=== PATIENT | male | born 1950 | race Caucasian/White ===

== ENCOUNTER 2017-06-10 10:57 | Observation (INO) | payer MEDICARE ==
[~2017-06-10] VITALS: Ht 185.4 cm; Wt 97.3 kg
[2017-06-10] MEDS ORDERED: NITROGLYCERIN 0.4 MG SL TAB SL ONE (11:20)
[2017-06-10 11:27] LABS: BASOPHILS % (AUTO) 0.4 % (0.0-5.0); EOSINOPHILS % (AUTO) 1.9 % (0.0-8.0); HEMATOCRIT 46.8 % (42-54); LYMPHOCYTES % (AUTO) 33.4 % (21.0-51.0); MEAN CORPUSCULAR HEMOGLOBIN 30.7 pg (27.0-33.0); MEAN CORPUSCULAR HGB CONC 35.5 g/dL (32.0-36.0); MEAN CORPUSCULAR VOLUME 86.5 fL (79-99); MONOCYTES % (AUTO) 6.5 % (3.0-13.0); NEUTROPHILS % (AUTO) 57.8 % (40.0-77.0); PLATELET COUNT (AUTO) 231 K/uL (130-400); RED BLOOD CELL COUNT(AUTO) 5.41 MIL/uL (4.50-6.20); WHITE BLOOD COUNT (AUTO) 8.7 K/uL (4.8-10.8)
[2017-06-10] MEDS ORDERED: ONDANSETRON HCL MDV 20ML 2 MG/ML VIAL ONE (11:27)
[2017-06-10 11:32] LABS: CREATININE 1.2 mg/dL (0.5-1.5); POTASSIUM 4.1 mmol/L (3.5-5.1)
[2017-06-10 11:44] LABS: INR 0.96 (0.85-1.15); PARTIAL THROMBOPLASTIN TIME 23.9 SEC (26.3-35.5); PROTHROMBIN TIME 10.1 SEC (9.6-11.6)
[2017-06-10 11:46] LABS: BILIRUBIN,TOTAL 0.4 mg/dL (0.2-1.0); CREATINE KINASE MB 0.9 ng/mL (0.5-3.6); TOTAL PROTEIN, SERUM 7.9 g/dL (6.0-8.3)
[2017-06-10] MEDS ORDERED: NITROGLYCERIN 50 MG/D5% WATER 1 BOT ONE (11:46)
[2017-06-10] MEDS ORDERED: MORPHINE SULFATE 4 MG/1ML SYG ONE (11:46)
[2017-06-10] MEDS ORDERED: IOPAMIDOL-370 100 ML VIAL IV ONE ×3 (12:11→17:03)
[2017-06-10] MEDS ORDERED: SODIUM CHLORIDE 0.9% 1000ML 1,000 ML IV ONE (15:35)
[2017-06-10] MEDS ORDERED: BIVALIRUDIN 250 MG/VIAL IV ONE (15:45)
[2017-06-10] MEDS ORDERED: NITROGLYCERIN 5 MG/ML 10 ML VIAL IV ONE (15:46)
[2017-06-10] MEDS ORDERED: ISOVUE-370 50ML VIAL IV ONE (15:46)
[2017-06-10] MEDS ORDERED: LIDOCAINE HCL 2% 20ML ONE (16:24)
[2017-06-10 17:28] VITALS: BP 131/68
[2017-06-10] MEDS ORDERED: PRASUGREL HCL 10 MG TABLET ONE (17:38)
[2017-06-10] MEDS ORDERED: LABETALOL HCL 5 MG/ML 20ML VIAL IV ONE (17:45)
[2017-06-10] MEDS ORDERED: SODIUM CHLORIDE 0.9% 1000ML 1,000 ML IV SCH (17:49)
[2017-06-10 19:15] VITALS: BP 114/76
[2017-06-10] MEDS: CARVEDILOL 6.25 MG TABLET PO SCH ×2 (19:17→21:55)
[2017-06-10] MEDS: LOSARTAN 50 MG TABLET PO SCH (19:17)
[2017-06-10 19:30] VITALS: BP 130/64
[2017-06-10 19:38] LABS: HEMATOCRIT 43.3 % (42-54); MEAN CORPUSCULAR HEMOGLOBIN 30.2 pg (27.0-33.0); MEAN CORPUSCULAR HGB CONC 34.9 g/dL (32.0-36.0); MEAN CORPUSCULAR VOLUME 86.6 fL (79-99); PLATELET COUNT (AUTO) 212 K/uL (130-400); RED CELL DISTRIBUTION WIDTH 12.9 % (11.0-15.5); WHITE BLOOD COUNT (AUTO) 11.4 K/uL (4.8-10.8)
[2017-06-10 19:45] VITALS: BP 137/79
[2017-06-10 19:58] LABS: CREATININE 1.2 mg/dL (0.5-1.5); POTASSIUM 4.1 mmol/L (3.5-5.1)
[2017-06-10 19:59] LABS: LYMPHOCYTES % (MANUAL) 14 % (22-44); MONOCYTES % (MANUAL) 2 % (2-9); PLATELET MORPHOLOGY COMMENT ADEQUATE; REACTIVE LYMPHOCYTES 1 % (0-0); SEGMENTED NEUTROPHILS % 83 % (40-70)
[2017-06-10 20:00] VITALS: BP 126/56
[2017-06-10] MEDS: ATORVASTATIN CALCIUM 20 MG TABLET PO SCH (21:55)
[2017-06-10 23:42] VITALS: BP 120/65
[2017-06-11] MEDS ORDERED: NITROGLYCERIN 1GM/1 INCH PACKET TD ONE (02:08)
[2017-06-11] MEDS ORDERED: ONDANSETRON HCL MDV 20ML 2 MG/ML VIAL IVP PRN (02:15)
[2017-06-11] MEDS: NITROGLYCERIN 1GM/1 INCH PACKET TD SCH ×3 (02:26→19:00)
[2017-06-11] MEDS ORDERED: ASPIRIN 81MG TAB.CHEW PO ONE (02:28)
[2017-06-11 02:33] LABS: MEAN CORPUSCULAR HEMOGLOBIN 30.3 pg (27.0-33.0); MEAN CORPUSCULAR HGB CONC 34.8 g/dL (32.0-36.0); NUCLEATED RED BLOOD CELLS 0.1 % (0.0-0.19); PLATELET COUNT (AUTO) 213 K/uL (130-400); RED BLOOD CELL COUNT(AUTO) 5.06 MIL/uL (4.50-6.20); WHITE BLOOD COUNT (AUTO) 15.3 K/uL (4.8-10.8)
[2017-06-11 02:42] LABS: CREATININE 1.2 mg/dL (0.5-1.5); POTASSIUM 3.9 mmol/L (3.5-5.1)
[2017-06-11 03:04] LABS: CREATINE KINASE MB 14.2 ng/mL (0.5-3.6)
[2017-06-11 03:06] LABS: TROPONIN I 3.8 ng/mL (0.00-0.06)
[2017-06-11 03:45] VITALS: BP 153/87
[2017-06-11 07:00] VITALS: BP 110/66
[2017-06-11] MEDS: PRASUGREL HCL 10 MG TABLET PO SCH (08:55)
[2017-06-11] MEDS: CARVEDILOL 6.25 MG TABLET PO SCH ×2 (08:55→20:06)
[2017-06-11] MEDS: PANTOPRAZOLE SODIUM 40 MG TABLET.DR PO SCH (08:55)
[2017-06-11] MEDS: LOSARTAN 50 MG TABLET PO SCH (08:55)
[2017-06-11] MEDS ORDERED: ASPIRIN 81MG TAB.CHEW PO SCH (09:00)
[2017-06-11 11:00] VITALS: BP 103/62
[2017-06-11] MEDS: POLYETHYLENE GLYCOL 3350 17 GM POWD.PACK PO SCH (12:26)
[2017-06-11] MEDS ORDERED: ACETAMINOPHEN 325 MG TAB ONE (14:59)
[2017-06-11] MEDS ORDERED: ACETAMINOPHEN 325 MG TAB PO PRN (15:00)
[2017-06-11 16:21] VITALS: BP 116/74
[2017-06-11 19:00] VITALS: BP 117/64
[2017-06-11] MEDS: ATORVASTATIN CALCIUM 20 MG TABLET PO SCH (20:06)
[2017-06-12] VITALS: BP 96/61
[2017-06-12] MEDS: NITROGLYCERIN 1GM/1 INCH PACKET TD SCH ×2 (02:52→10:27)
[2017-06-12 04:00] VITALS: BP 98/59
[2017-06-12 07:39] VITALS: BP 102/66
[2017-06-12] MEDS ORDERED: OMEG-148 PO (08:29)
[2017-06-12] MEDS ORDERED: METF750T2 PO (08:29)
[2017-06-12] MEDS ORDERED: LISI1TAB9 PO (08:29)
[2017-06-12] MEDS ORDERED: GLUC100019 PO (08:29)
[2017-06-12] MEDS ORDERED: ASPI81TA40 PO (08:29)
[2017-06-12] MEDS ORDERED: MULT-685 PO (08:29)
[2017-06-12] MEDS ORDERED: CALC-1208 PO (08:29)
[2017-06-12] MEDS ORDERED: OMEP20CA10 PO (08:29)
[2017-06-12] MEDS ORDERED: PRAV20TA4 PO (08:29)
[2017-06-12] MEDS: LOSARTAN 50 MG TABLET PO SCH (08:48)
[2017-06-12] MEDS: POLYETHYLENE GLYCOL 3350 17 GM POWD.PACK PO SCH (08:48)
[2017-06-12] MEDS: CARVEDILOL 6.25 MG TABLET PO SCH (08:49)
[2017-06-12] MEDS: PANTOPRAZOLE SODIUM 40 MG TABLET.DR PO SCH (08:49)
[2017-06-12] MEDS: PRASUGREL HCL 10 MG TABLET PO SCH (08:49)
[2017-06-12] MEDS ORDERED: ASPIRIN 325MG EC TAB 325 MG TABLET.DR PO SCH (10:45)
[2017-06-12] MEDS ORDERED: PRAS10TA6 PO (10:56)
[2017-06-12] MEDS ORDERED: CARV6.2579 PO (10:56)
[2017-06-12] MEDS ORDERED: AEC81 PO (10:56)
[2017-06-12] MEDS ORDERED: ATOR10 PO (10:56)
[2017-06-12 11:29] VITALS: BP 99/64
[2017-06-13] MEDS ORDERED: ASPIRIN 81 MG EC TAB PO SCH (09:00)
== END 2017-06-12 13:00 | disposition home or self-care (01) ==
LOC: EDH 10:57 → EDHIP 16:02 → 2AH 18:15
PROVIDERS: ADMIT Family Medicine; ATTEND Family Medicine
DX: I21.4 Non-ST elevation (NSTEMI) myocardial infarction (principal); I25.10 Atherosclerotic heart disease of native coronary artery without angina pectoris; E11.9 Type 2 diabetes mellitus without complications; E78.5 Hyperlipidemia, unspecified; I10 Essential (primary) hypertension; Z95.5 Presence of coronary angioplasty implant and graft; Z79.899 Other long term (current) drug therapy; Z79.84 Long term (current) use of oral hypoglycemic drugs; Z79.82 Long term (current) use of aspirin; K21.9 Gastro-esophageal reflux disease without esophagitis; K22.70 Barrett's esophagus without dysplasia; I25.5 Ischemic cardiomyopathy
CPT/HCPCS: 36415 ×2; 71045; 71275; 80048; 80053; 80061 ×2; 82550 ×2; 82553 ×2; 82948 ×3; 83874; 83880; 84484 ×3; 85025 ×2; 85027; 85610; 85730; 93005 ×5; 93458; 99291; C1760; C1769 ×2; C1874 ×2; C1887; C1894 ×2; C9600; C9601; G0378 ×45; J0583; J1644; J2270; J3490 ×4; J7030; Q9967 ×4

== ENCOUNTER 2018-04-14 08:38 | Observation (INO) | payer MEDICARE ==
[2018-04-12 08:35] VITALS: BP 136/62
[2018-04-12 08:38] LABS: APPEARANCE,URINE Clear (CLEAR); BILIRUBIN,URINE Negative (NEGATIVE); COLOR,URINE Yellow (YELLOW); GLUCOSE, URINE (UA) Negative (NEGATIVE); KETONES,URINE Negative (NEGATIVE); LEUKOCYTE ESTERASE ,URINE Negative (NEGATIVE); NITRATE,URINE Negative (NEGATIVE); OCCULT BLOOD,URINE Negative (NEGATIVE); PH,URINE 5.5 (5.0-8.0); PROTEIN,URINE Negative (NEGATIVE)
[2018-04-12 08:39] LABS: BASOPHILS % (AUTO) 0.4 % (0.0-5.0); EOSINOPHILS % (AUTO) 4.1 % (0.0-8.0); LYMPHOCYTES % (AUTO) 17.5 % (21.0-51.0); MEAN CORPUSCULAR HEMOGLOBIN 30.5 pg (27.0-33.0); MEAN CORPUSCULAR HGB CONC 34.4 g/dL (32.0-36.0); MEAN CORPUSCULAR VOLUME 88.5 fL (79-99); MONOCYTES % (AUTO) 5.8 % (3.0-13.0); NEUTROPHILS % (AUTO) 72.2 % (40.0-77.0); NUCLEATED RED BLOOD CELLS 0.1 % (0.0-0.19); PLATELET COUNT (AUTO) 228 K/uL (130-400); RED BLOOD CELL COUNT(AUTO) 4.86 MIL/uL (4.50-6.20); WHITE BLOOD COUNT (AUTO) 8.9 K/uL (4.8-10.8)
[2018-04-12 08:47] LABS: CREATININE 1.2 mg/dL (0.5-1.5); POTASSIUM 4.2 mmol/L (3.5-5.1)
[2018-04-12 09:01] LABS: INR 1.05 (0.85-1.15); PARTIAL THROMBOPLASTIN TIME 26.1 SEC (26.3-35.5)
[2018-04-14] VITALS (10 sets, daily range): BP systolic 97–136; BP diastolic 57–73
[~2018-04-14] VITALS: Ht 185.4 cm; Wt 98.2 kg
[~2018-04-14 08:38] MED LIST: ASPI-555 PO; ATOR-2 PO; CARV6.2579 PO; CLOP75TA14 PO; LISI1TAB9 PO; METF750T2 PO; MULT-685 PO; OMEG-148 PO; OMEP20CA10 PO
[2018-04-14] MEDS ORDERED: SODIUM CHLORIDE 0.9% 1000ML 1,000 ML IV ONE (09:20)
[2018-04-14] MEDS ORDERED: IOHEXOL 350 MG/ML 100ML INFUS..BTL IV ONE (13:01)
[2018-04-14] MEDS ORDERED: IOHEXOL-350 50ML VIAL IV ONE (13:01)
[2018-04-14] MEDS ORDERED: LIDOCAINE HCL 2% 20ML ONE (13:01)
[2018-04-14] MEDS ORDERED: NITROGLYCERIN 5 MG/ML 10 ML VIAL IV ONE (13:01)
[2018-04-14] MEDS ORDERED: BIVALIRUDIN 250 MG/VIAL IV ONE (13:26)
[2018-04-14] MEDS ORDERED: MIDAZOLAM HCL 1 MG/ML 2ML VIAL ONE (13:38)
[2018-04-14] MEDS ORDERED: FENTANYL CITRATE PF 50 MCG/1 ML 2ML VIAL ONE (13:39)
[2018-04-14] MEDS ORDERED: LABETALOL HCL 5 MG/ML 20ML VIAL IV ONE (14:23)
[2018-04-14] MEDS ORDERED: SODIUM CHLORIDE 0.9% 1000ML 1,000 ML IV SCH (14:25)
[2018-04-14] MEDS ORDERED: CLOPIDOGREL BISULFATE 300 MG TAB ONE ×2 (14:30→14:35)
[2018-04-14] MEDS ORDERED: HYDRALAZINE HCL 20 MG/ML VIAL ONE (14:36)
[2018-04-14] MEDS: INSULIN HUMULIN R 100 UNIT/ML 3ML SQ SCH ×2 (16:30→21:00)
--- NOTE | 2018-04-14 16:30 | NUR ---
Report called to Mary Gasca RN. Mary has no further questions at this time.
--- NOTE | 2018-04-14 16:45 | NUR ---
PT to PCCU to room 217, Care rendered over to Mary Gasca RN. Further bedside report provided. Mary denies any further questions. Pt's 2 hour bedrest up at 16:43 and pt able to scoot from day pt bed to ICU bed without problems.
--- NOTE | 2018-04-14 16:50 | NUR ---
RECEIVED PT FROM DAY PT. PT AAO X4. ON RA. DENIES ANY CHEST PAIN OR DISCOMFORT. PIV X1 TO LEFT WRIST WITH NS AT 100 ML/HR. PERCLOSE DRESSING TO RIGHT GROIN INTACT. PEDAL PULSES STRONG AND PALPABLE. PT SR 76 ON BEDSIDE MONITOR. NO ECTOPY NOTED. VS NOTED ON COMPUTER. PLAN OF CARE DISCUSSED. CALL LIGHT WITHIN REACH. AT BEDSIDE. CONTINUE TO MONITOR PT.
--- NOTE | 2018-04-14 20:00 | NUR ---
pt with right groin dressing dry intact. no bleeding noted. pt denies numbness or tingling to bilateral lower ext. Lower ext warm to touch bilateral.
[2018-04-14] MEDS: FISH OIL 1000 MG/CAP PO SCH (21:00)
[2018-04-14] MEDS: CARVEDILOL 6.25 MG TABLET PO SCH (21:00)
[2018-04-14] MEDS ORDERED: ATORVASTATIN CALCIUM 40 MG TABLET PO SCH (21:00)
[2018-04-14] MEDS: LISINOPRIL HCTZ PO SCH (21:00)
[2018-04-14] MEDS ORDERED: ASPIRIN 81 MG EC TAB PO SCH (21:00)
[2018-04-15 04:00] VITALS: BP 100/66
[2018-04-15 04:02] LABS: HEMATOCRIT 41.3 % (42-54); MEAN CORPUSCULAR HEMOGLOBIN 29.8 pg (27.0-33.0); MEAN CORPUSCULAR HGB CONC 34.5 g/dL (32.0-36.0); MEAN CORPUSCULAR VOLUME 86.5 fL (79-99); PLATELET COUNT (AUTO) 217 K/uL (130-400); RED BLOOD CELL COUNT(AUTO) 4.78 MIL/uL (4.50-6.20); RED CELL DISTRIBUTION WIDTH 12.6 % (11.0-15.5); WHITE BLOOD COUNT (AUTO) 9.8 K/uL (4.8-10.8)
[2018-04-15] MEDS: INSULIN HUMULIN R 100 UNIT/ML 3ML SQ SCH (06:24)
[2018-04-15 07:00] VITALS: BP 125/79
[2018-04-15] MEDS ORDERED: PANTOPRAZOLE SODIUM 40 MG TABLET.DR PO SCH ×2 (07:30)
[2018-04-15 08:03] VITALS: BP 125/79
[2018-04-15] MEDS: CARVEDILOL 6.25 MG TABLET PO SCH (08:03)
[2018-04-15] MEDS: FISH OIL 1000 MG/CAP PO SCH (08:03)
[2018-04-15] MEDS: LISINOPRIL HCTZ PO SCH (08:08)
[2018-04-15] MEDS ORDERED: MULTIVITAMIN WITH MINERALS TABLET PO SCH (09:00)
[2018-04-15] MEDS ORDERED: ASPIRIN 81MG TAB.CHEW PO SCH (09:00)
[2018-04-15] MEDS ORDERED: CLOPIDOGREL BISULFATE 75 MG TAB PO SCH ×2 (09:00)
--- NOTE | 2018-04-15 09:20 | NUR ---
DR SANDERS AWARE OF CONSULT
== END 2018-04-15 11:15 | disposition home or self-care (01) ==
LOC: DAH 08:38 → DAHIP 08:39 → 2CH 16:50
PROVIDERS: ADMIT Internal Medicine Cardiovascular Disease; ATTEND Internal Medicine Cardiovascular Disease
DX: I25.119 Atherosclerotic heart disease of native coronary artery with unspecified angina pectoris (principal); E11.649 Type 2 diabetes mellitus with hypoglycemia without coma; E78.2 Mixed hyperlipidemia; I11.0 Hypertensive heart disease with heart failure; I50.20 Unspecified systolic (congestive) heart failure; I25.2 Old myocardial infarction; Z95.5 Presence of coronary angioplasty implant and graft
CPT/HCPCS: 36415 ×2; 71045; 80048 ×2; 80061; 81003; 82948 ×4; 85025; 85027; 85610; 85730; 93005 ×3; 93458; A4606; C1760; C1769; C1874; C1887 ×3; C1894; C9600; G0378 ×27; J0360; J0583; J1644; J2250; J3010; J3490 ×3; J7030; Q9965 ×2; Q9967 ×2; 99156; 99157